=== PATIENT | female | born 1960 | race Caucasian/White ===

== ENCOUNTER 2018-04-16 09:21 | Day surgery (SDC) | payer OTHER, MEDICAID ==
[2018-04-16] MEDS ORDERED: MIDAZOLAM 1 MG/ML 2 ML INJ ×2 (11:31)
[2018-04-16] MEDS ORDERED: FENTAnyl 50 MCG/ML VIAL (11:31)
== END 2018-04-16 11:56 | disposition home or self-care (01) ==
LOC: GIL 09:21
DX: Z12.11 Encounter for screening for malignant neoplasm of colon (principal); K64.8 Other hemorrhoids; I10 Essential (primary) hypertension; E11.9 Type 2 diabetes mellitus without complications
CPT/HCPCS: 45378; 82962